=== PATIENT | male | born 1975 | race Caucasian/White ===

== ENCOUNTER 2017-03-19 10:09 | Observation (INO) ==
[2017-03-19] MEDS ORDERED: ONDANSETRON 4 MG/2 ML VIAL IV STA ×2 (10:37→12:10)
[2017-03-19] MEDS ORDERED: SODIUM CHLORIDE 0.9% 1,000 ML IV STA ×2 (10:37→12:14)
[2017-03-19] MEDS ORDERED: ONDANSETRON 4 MG/2 ML VIAL ONE ×2 (10:37→11:58)
--- NOTE | 2017-03-19 10:39 | Emergency Department Note ---
Arrival - Arrival Chief Complaint: Nausea/Vomiting/Diarrhea Stated Complaint: vomiting-stomach pain ED Nursing Triage Note: Pt c/o N/V since Friday. reports some diarrhea this morning. Pt states unable to keep anything down. Mode of Arrival: Ambulatory Limitations: No Limitations Source: Patient Time Seen by Provider: 03/19/17 10:37 - History of Present Illness HPI Narrative: This is a 41-year-old male patient presents to ED complaining of a 2 day history of vomiting. Patient also reports one episode of diarrhea. Patient denies any fever or body aches. Patient does have some pain when he throws up. Past medical history is unremarkable except for ADHD. Patient takes Adderall and Seroquel. There is no known exposure to people with similar illnesses or any bad food exposure. Allergies/Adverse Reactions: Allergies Allergy/AdvReac Type Severity Reaction Status Date / Time No Known Allergies Allergy Verified 03/19/17 10:21 Home Medications: Home Medications Medication Instructions Recorded Confirmed Type Dextroamphetamine/Amphetamine 20 mg PO QAM 03/19/17 03/19/17 History [Adderall 20 mg Tablet] QUEtiapine [SEROquel] 25 mg PO BEDTIME 03/19/17 03/19/17 History Review of System - Review of System 12 point system: reviewed and no additional remarkable complaints except as stated - Review of System Constitutional: Absent: chills, fever Gastrointestinal: Present: nausea, vomiting, diarrhea. Absent: abdominal pain Medical,Surgical,& Family Hx - Medical History Medical History: noncontributory - Social History Smoking Status: Never smoker Frequency of Alcohol Use: None Type of Drug Use: None Exam Vital Signs: Vital Signs Temperature 97.0 F L 03/19/17 10:29 Pulse Rate 89 03/19/17 10:29 Respiratory Rate 18 03/19/17 10:29 Blood Pressure 116/75 03/19/17 10:29 O2 Sat by Pulse Oximetry 98 03/19/17 10:19 - General General appearance: alert, in no apparent distress - Head Head exam: Present: atraumatic - Eye Eye exam: Present: normal appearance, PERRL - ENT ENT exam: Present: normal exam - Neck Neck exam: Present: normal inspection - Chest Chest inspection: Present: normal inspection - Respiratory Respiratory exam: Present: normal lung sounds bilaterally - Cardiovascular Cardiovascular exam: Present: regular rate, normal rhythm, normal heart sounds. Absent: murmur - Abdominal Exam Abdominal exam: Present: soft, tenderness (Left upper quadrant to direct palpation), normal bowel sounds. Absent: guarding, rebound - Rectal Exam Rectal exam: Present: deferred - Extremities Exam Extremities exam: Present: normal inspection - Back Exam Back exam: Present: normal inspection - Neurological Exam Neurological exam: Present: alert, oriented X3 - Psychiatric Psychiatric exam: Present: normal affect, normal mood - Skin Skin exam: Present: warm, dry Course Course Narrative: Patient has had several doses of Zofran and Phenergan and continues to have vomiting. He is received 2 L of fluids while in the ED. Will admit for further observation. After receiving the CAT scan report we reexamined the patient and he has no tenderness at all over the right lower quadrant. I doubt this is appendicitis. Results - Labs CBC & BMP: 03/19/17 10:42 03/19/17 10:42 Lab Results: I have reviewed the patients labs - Diagnostic Findings Procedure: CT Abdomen and Pelvis: report reviewed by me (Appendix is mildly thickened at 10 mm. There is no periappendiceal inflammation noted.) Disposition Clinical Impression: Acute pancreatitis, Elevated bilirubin, Vomiting, Dehydration Case discussed with: patient, patient's family Disposition: Still a Patient Condition: Guarded Additional Instructions: Admit to the hospitalist.
[2017-03-19 10:48] LABS: Basophils % 0.2 % (0.0-0.8); Hemoglobin 16.2 GM/DL (14.0-18.0); Immature Granulocytes % 0.5 %; Immature Granulocytes Absolute 0.07 #; Lymphocytes # 1.9 10*3/uL (1.4-4.0); Lymphocytes % 12.7 % (21.2-54.2); Mean Corpuscular HGB Conc 34.5 GM/DL (32-36); Mean Corpuscular Hemoglobin 30 PG (27-34); Mean Corpuscular Volume 87.4 FL (87-102); Mean Platelet Volume 9.3 FL (9.6-12.0); Monocytes % 6.8 % (1.7-12.7); Neutrophils # 11.9 10*3/uL (1.4-7.4); Neutrophils % 79.8 % (38.7-73.9); Platelet Count 514 T/CUMM (130-400); Red Blood Count 5.38 MC/CUMM (3.8-5.5); Red Cell Distribution Width 11.7 % (9.3-17.3); White Blood Count 14.9 T/CUMM (4-12)
[2017-03-19 11:19] LABS: Albumin 4.8 G/DL (3.4-5.0); Bilirubin,Total 1.3 MG/DL (0.2-1.0); Calcium 10.1 MG/DL (8.5-10.1); Osmolality,Calculated 275.1 MOS/KG (273-304); Total Protein 8.7 G/DL (6.4-8.3)
--- NOTE | 2017-03-19 13:03 | CT Report ---
History: Nausea and vomiting. Abnormal labs. Elevated white blood cell count. Elevated lipase Date: 03/19/2017 Study: CT abdomen and pelvis with IV contrast Comparison exam: No previous abdominal CT for comparison Technique: Spiral CT sections were obtained from the lung bases to the pubic symphysis following 100 mL Omnipaque [address] exam was performed using one or more of the following dose reduction techniques: Automated exposure control, adjustment of the mA and/or kV according to patient size, or use of iterative reconstruction technique. CT abdomen: The partially visualized lung bases are essentially clear. There is no gross pleural or pericardial effusion. The liver, bile ducts, fluid-filled gallbladder, spleen, pancreas, adrenal glands, and kidneys are normal in appearance. There is no obvious inflammatory change in the peripancreatic fat. There is no evidence of pneumoperitoneum. There is no margarita bowel obstruction. There is limited distention of the colon, limiting evaluation for wall thickening related to colitis. There is no gross pericolonic inflammation. There is mild diverticulosis. The appendix is plump at 10 mm. There is no obvious periappendiceal inflammation. There is no evidence of abscess formation. There is no aortic aneurysm. CT pelvis: No pelvic mass or abnormal pelvic fluid collection is seen. Impression: The appendix measures mildly thickened at 10 mm diameter, compatible with mild/early appendicitis. There is no gross periappendiceal inflammation, however. There is no evidence of abscess or perforation. No significant findings otherwise PROCEDURE INTERPRETED AT [facility] DEPARTMENT OF RADIOLOGY Final Report Signed by: Dr. Lin Peace
[2017-03-19] MEDS ORDERED: PROMETHAZINE 25 MG/1 ML VIAL ONE (13:14)
[2017-03-19] MEDS ORDERED: PROMETHAZINE INJ 25 MG in SODIUM CHLORIDE 0.9% 50 ML IV STA (13:22)
[2017-03-19] MEDS ORDERED: PROMETHAZINE 25 MG/1 ML VIAL IM STA (13:23)
[2017-03-19] MEDS ORDERED: METOCLOPRAMIDE 10 MG/2 ML VIAL ONE (13:41)
[2017-03-19] MEDS ORDERED: METOCLOPRAMIDE 10 MG/2 ML VIAL IV STA (13:47)
--- NOTE | 2017-03-19 14:06 | General Surgery Consult Note ---
Assessment and Plan - Time spent with patient Time spent with patient: Less than 30 minutes (1) Vomiting Status: Acute Assessment and plan: The etiology of his nausea and vomiting is unclear. I do not think that the patient likely has appendicitis despite the fact that his appendix is a little bit larger than normal on CT scan. There is no tenderness and no pain in this location and no periappendiceal inflammation. This process is been going on for several days in a think that if appendicitis with a culprit it would certainly be more obvious on CT scan and on clinical examination. Current Visit: Yes (2) Acute pancreatitis Status: Acute Assessment and plan: He has a mild elevation of his lipase and I think that true acute pancreatitis is unlikely. I would expect to see much higher lipase level and some changes of inflammation around the pancreas on CT scan. Current Visit: Yes (3) Elevated bilirubin Status: Acute Assessment and plan: This may be Guilbert syndrome. We can check a fractionated bilirubin. Current Visit: Yes History of Present Illness Chief complaint: Nausea and vomiting History of present illness: Mr. Ybarra is a 41 year old male Who for 4 days has had nausea and vomiting. He has had minimal abdominal pain and he attributes abdominal pain to vomiting. He cannot localize any particular pain in his abdomen. He has had a little bit of diarrhea but otherwise normal bowel habits. He had an abdominal CT scan which raised the possibility of early appendicitis as he had a visible appendix dilated about 10 mm but no periappendiceal inflammation. Home Medications Medication Instructions Recorded Confirmed Type Dextroamphetamine/Amphetamine 20 mg PO QAM 03/19/17 03/19/17 History [Adderall 20 mg Tablet] QUEtiapine [SEROquel] 25 mg PO BEDTIME 03/19/17 03/19/17 History Allergies Allergy/AdvReac Type Severity Reaction Status Date / Time No Known Allergies Allergy Verified 03/19/17 10:21 Medical,Surgical,& Family Hx - Medical History Medical History: noncontributory - Surgical History Surgical History: noncontributory - Family History Family History: noncontributory - Social History Smoking Status: Never smoker Frequency of Alcohol Use: None Type of Drug Use: None - Constitutional Constitutional: Absent: chills, fever(s) - Cardiovascular Cardiovascular: Absent: chest pain at rest, chest pain with activity - Respiratory Respiratory: Absent: dyspnea, hemoptysis - Gastrointestinal Gastrointestinal: Present: diarrhea, nausea, vomiting. Absent: abdominal pain, cramping, hematemesis, hematochezia, jaundice Exam - Constitutional Vitals: Period Temp Pulse Resp BP Sys/Armendariz Pulse Ox Last 24 Hr 97.0 F-97.0 F 89-89 18-18 116-116/75-75 98 General appearance: no acute distress - Head Head exam: Present: normocephalic - Eye Eye exam: Absent: scleral icterus - ENT Mouth exam: Present: normal voice - Respiratory Respiratory exam: Present: clear to auscultation bilaterally. Absent: accessory muscle use - Cardiovascular Cardiovascular exam: Present: RRR - GI/Abdominal GI/Abdominal exam: Present: normal bowel sounds, soft. Absent: distended, guarding, mass, Hairston's sign, tenderness, rebound - Extremities Exam Extremities exam: Absent: edema - Neurological Exam Neurological exam: Present: alert, oriented X3. Absent: motor sensory deficit Speech: Present: normal - Skin Skin exam: Present: normal color Results - Labs CBC & BMP: 03/19/17 10:42 03/19/17 10:42 Lab Results: I have reviewed the past 24 hour labs - Diagnostic Findings Procedure: CT Abdomen and Pelvis: image reviewed by me, report reviewed by me
--- NOTE | 2017-03-19 15:03 | Hospitalist History & Physical ---
Assessment and Plan - Time spent with patient Time spent with patient: Greater than 30 minutes (1) Acute pancreatitis Status: Acute Assessment and plan: Lipase 465 WBC 14.9. Keep NPO. IV fluids. PRN pain medications. Repeat CBC and BMP in the a.m. Current Visit: Yes (2) Vomiting Status: Acute Assessment and plan: Intractable vomiting since Friday. Given Zofran, Phenergan and Reglan in the ED. Will continue to monitor and provide therapeutic support. Current Visit: Yes (3) Dehydration Status: Acute Assessment and plan: Fluid repletion with IV Normal Saline Current Visit: Yes History of Present Illness Chief complaint: intractable N/V History of present illness: Mr. Ybarra is a 41 year old male with no significant medical history who presents the [facility] ED with complaints of intractable nausea and vomiting since Friday morning. The patient and his , who is at bedside, report that he has not been nauseas and vomiting for the past two days despite antiemetic usage and reduced intake. He denies any chest pain, headache, abdominal pain, history of liver disease, kidney stones, recent infections or previous abdominal surgeries. Other than a bout of diarrhea this morning, he denies any abdominal bowel function. The patient states he has not urinated in 3 days. The etiology of his nausea and vomiting is unclear on admission. The patient does have and elevated lipase 465 and white count 14.9, however, this is not congruent with a typical pancreatitis presentation. He will be admitted to the hospital medicine service for rehydration, further evaluation and treatment. The patient does have a history of dipping tobacco, approx 1 can per day. The patient is a full code. This case has been discussed with Dr. Hess. Home Medications Medication Instructions Recorded Confirmed Type Dextroamphetamine/Amphetamine 20 mg PO QAM 03/19/17 03/19/17 History [Adderall 20 mg Tablet] QUEtiapine [SEROquel] 25 mg PO BEDTIME 03/19/17 03/19/17 History Allergies Allergy/AdvReac Type Severity Reaction Status Date / Time No Known Allergies Allergy Verified 03/19/17 10:21 Medical,Surgical,& Family Hx - Social History Smoking Status: Never smoker (dips 1 can tobacco per day) Frequency of Alcohol Use: None Type of Drug Use: None Marital Status: Lives With:: Spouse Functional capacity: independent ambulation - Constitutional Constitutional: Absent: fatigue, fever(s), headache(s), night sweats - EENT Eyes: Absent: blurry vision, loss of vision Ears: Absent: decreased hearing, ear pain Nose, mouth and throat: Present: sore throat. Absent: dysphagia, epistaxis - Cardiovascular Cardiovascular: Absent: chest pain at rest, chest pain with activity, dyspnea, edema - Respiratory Respiratory: Absent: cough, hemoptysis, wheezing, snoring - Gastrointestinal Gastrointestinal: Present: diarrhea, nausea, vomiting. Absent: abdominal pain, constipation, heartburn - Genitourinary Genitourinary: Present: other (has not urinated in 3 days) - Musculoskeletal Musculoskeletal: Absent: back pain, myalgias - Neurological Neurological: Absent: abnormal gait, abnormal speech, numbness, syncope - Psychiatric Psychiatric: Absent: anxiety, depression - Endocrine Endocrine: Absent: cold intolerance, fatigue, heat intolerance - Hematologic/Lymphatic Hematologic/Lymphatic: Absent: easy bleeding, easy bruising Exam - Constitutional Vitals: Period Temp Pulse Resp BP Sys/Armendariz Pulse Ox Last 24 Hr 97.0 F-97.0 F 89-89 18-18 116-116/75-75 98 Exam: General appearance: normal weight, no acute distress - Head Head exam: Present: normocephalic, atraumatic - Eye Eye exam: Present: EOMI. Absent: conjunctival injection, nystagmus Pupils: Present: JALEESA, normal accommodation - ENT ENT exam: Present: normal exam, normal external ear exam - Neck Neck exam: Present: normal inspection. Absent: lymphadenopathy, tenderness, thyromegaly - Respiratory Respiratory exam: Present: clear to auscultation bilaterally. Absent: rales, rhonchi, wheezes - Cardiovascular Cardiovascular exam: Present: regular rate and rhythm. Absent: carotid bruit, gallop, rubs - GI/Abdominal GI/Abdominal exam: Present: hypoactive bowel sounds. Absent: ascites, distended , mass - Extremities Exam Extremities exam: Present: normal inspection, normal capillary refill. Absent: edema - Back Exam Back exam: Absent: CVA tenderness (L), CVA tenderness (R) - Neurological Exam Neurological exam: Present: alert, oriented X3 - Psychiatric Psychiatric exam: Present: normal affect, normal mood - Skin Skin exam: Present: normal color, warm, dry Results - Labs CBC & BMP: 03/19/17 10:42 03/19/17 10:42 Lab Results: I have reviewed the past 24 hour labs
[2017-03-19] MEDS: SODIUM CHLORIDE 0.9% 1,000 ML IV SCH (16:19)
[2017-03-19] MEDS: PROMETHAZINE INJ 12.5 MG in SODIUM CHLORIDE 0.9% 50 ML IV PRN (16:38)
[2017-03-19] MEDS: QUEtiapine 25 MG TABLET PO SCH (20:40)
[2017-03-20] MEDS: ONDANSETRON 4 MG/2 ML VIAL IV PRN ×3 (00:07→13:15)
[2017-03-20] MEDS: SODIUM CHLORIDE 0.9% 1,000 ML IV SCH ×2 (00:30→17:53)
[2017-03-20] MEDS: PROMETHAZINE INJ 12.5 MG in SODIUM CHLORIDE 0.9% 50 ML IV PRN ×2 (04:05→11:22)
[2017-03-20 06:32] LABS: Basophils # 0.1 10*3/uL (0.0-0.2); Basophils % 0.4 % (0.0-0.8); Eosinophils % 0.1 % (0.00-10.9); Hematocrit 39.1 VOL% (42.0-52.0); Immature Granulocytes % 0.4 %; Immature Granulocytes Absolute 0.05 #; Lymphocytes % 14.9 % (21.2-54.2); Mean Corpuscular HGB Conc 34.8 GM/DL (32-36); Mean Corpuscular Hemoglobin 30 PG (27-34); Mean Corpuscular Volume 87.1 FL (87-102); Mean Platelet Volume 10.2 FL (9.6-12.0); Monocytes # 1.3 10*3/uL (0.11-0.8); Monocytes % 9.9 % (1.7-12.7); Neutrophils % 74.3 % (38.7-73.9); Platelet Count 444 T/CUMM (130-400); Red Blood Count 4.49 MC/CUMM (3.8-5.5); Red Cell Distribution Width 11.7 % (9.3-17.3); White Blood Count 13.4 T/CUMM (4-12)
[2017-03-20 06:42] LABS: Hemoglobin 13.6 GM/DL (14.0-18.0)
[2017-03-20 06:57] LABS: Calcium 8.8 MG/DL (8.5-10.1); Osmolality,Calculated 278.5 MOS/KG (273-304); Potassium 3.8 MMOL/L (3.5-5.1)
--- NOTE | 2017-03-20 08:06 | Hospitalist Progress Note ---
Assessment and Plan (1) Vomiting Status: Acute Assessment and plan: Impression: 1. Probable gastroenteritis, etiology not known. He has now developed some lower GI symptoms Plan: Continue IV fluids and GI rest. Stool studies to evaluate for pathogenic organisms. There is no history to suggest Clostridium difficile. Recheck amylase and lipase. Unless he has a remarkable improvement today, I think he will have to spend 1 more night in the hospital for IV fluids and ongoing IV nausea medicine. This note was completed using [employer] voice recognition software. There may be hide splitter errors as a result. Current Visit: Yes Qualifiers: Vomiting type: unspecified Vomiting Intractability: non-intractable Nausea presence: with nausea Qualified Code(s): R11.2 - Nausea with vomiting, unspecified Hospitalist: Subjective Interval history: Follow-up gastroenteritis and possible pancreatitis. The patient has continued to have episodes of nausea, vomiting, and pain. He has had 2 or 3 loose stools. He describes these as large volume, liquid, and no blood noted. He continues to require anti-emetics for relief of the upper GI symptoms. Exam - Constitutional Vitals: Period Temp Pulse Resp BP Sys/Armendariz Pulse Ox Last 24 Hr 98.8 F-99.6 F 64-73 18-20 122-140/70-81 95-98 Vital signs are noted above. Heart is regular with no murmur or gallop. Lungs are clear with no rales or wheezes. Abdomen has positive bowel sounds, and is mildly tender all over. There is no palpable mass. He is awake and alert. Results - Labs CBC & BMP: 03/20/17 05:11 03/20/17 05:11 Lab Results: I have reviewed the past 24 hour labs
[2017-03-20] MEDS ORDERED: NON-FORMULARY MEDICATION (Dextroamphetamine/Amphetamine [Adderall 20 Mg Tablet] 20 MG) PO SCH (09:00)
[2017-03-20] MEDS ORDERED: HALOPERIDOL 5 MG/ML AMP IV PRN (09:27)
[2017-03-20 10:11] LABS: Bilirubin,Direct 0.3 MG/DL (0.0-0.20); Bilirubin,Indirect 0.8 MG/DL (0.0-1.0); Bilirubin,Total 1.1 MG/DL (0.2-1.0)
[2017-03-20] MEDS ORDERED: PHENOL 1.4% THROAT SPRAY 177 ML BOTTLE PO PRN (14:59)
[2017-03-20] MEDS ORDERED: ALUM/MAG/SIMETH/LIDO VISC 1:1 30 ML BOTTLE PO PRN (15:49)
[2017-03-20] MEDS ORDERED: PROMETHAZINE INJ 25 MG in SODIUM CHLORIDE 0.9% 50 ML IV PRN (20:11)
--- NOTE | 2017-03-20 20:18 | Gastrointestinal Consult Note ---
Assessment and Plan (1) Nausea vomiting and diarrhea Status: Acute Assessment and plan: I suspect that this of complaints is likely due to an underlying infectious gastroenteritis. With a white blood cell count as high as 14 this certainly might be a bacterial infection and I will go ahead and start some floroquinolones in order to treat this, while we await the stool cultures. Will recheck the patient's white blood cell count tomorrow after starting Cipro tonight. Do the days worth of nausea and vomiting and the fact the patient is having some reflux symptoms I started some Protonix 40 mg twice daily which should help with a probable esophagitis developing as a result of the protracted vomiting. This alone can feed back into the nausea make this worse. Current Visit: Yes (2) Leukocytosis Status: Acute Assessment and plan: As mentioned above we will check the patient's white blood cell count tomorrow and see how it compares to the initial level of almost 15. I suspect this will improve rather to more dramatically along with the patient's symptoms. Current Visit: Yes (3) Elevated bilirubin Status: Acute Assessment and plan: This may represent a dehydration state with Gilbert's syndrome, we will have to check the patient's direct bilirubin during a period when he is fasting next in order to confirm this. If Gilbert's syndrome is present, the indirect bilirubin will predominate during fasting states--it typically does not produce a bilirubin higher than 2-5. There is no ductal dilatation nor is the patient having any right upper quadrant pain-- I do not suspect the gallbladder or biliary obstructive process. Current Visit: Yes History of Present Illness Chief complaint: Nausea/vomiting/diarrhea without significant abdominal pain History of present illness: Mr. 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 He denies eating anything spoiled or unusual does not partake of sushi or other uncooked proteins, has not had any sick contacts, has not had any recent travel history, does not have any unusual pets such as chickens frogs or reptiles. While the patient does have several children at home none of these children are sick. He does not have any fevers or chills but does have some mild reflux symptoms at this point after throwing up so many times. There is slight amount of epigastric tenderness due to the amount of vomiting he is having. Patient's white blood cell count was quite elevated initially at 14.9. I do not make much of the lipase level of 465 especially in the face of normal-appearing CT scan, this can be up with intra-abdominal inflammation. He does not typically have diarrhea or constipation. The picture is mostly one of a gastroenteritis possibly bacterial in origin based on the elevated white blood cell count. Stool culture is pending at this time. Bilirubin have been slightly elevated at 1.3 but with hydration is come down to 1.1, this may be indicative of a Gilbert's. To verify this will likely have to obtain a direct bilirubin while the patient is fasting in the future. Home Medications Medication Instructions Recorded Confirmed Type Dextroamphetamine/Amphetamine 20 mg PO QAM 03/19/17 03/19/17 History [Adderall 20 mg Tablet] QUEtiapine [SEROquel] 25 mg PO BEDTIME 03/19/17 03/19/17 History Allergies Allergy/AdvReac Type Severity Reaction Status Date / Time No Known Allergies Allergy Verified 03/19/17 10:21 Medical,Surgical,& Family Hx - Social History Smoking Status: Never smoker Frequency of Alcohol Use: None Type of Drug Use: None Review of systems: Constitutional: Denies fever, chills, but positive for recurrent nausea, and vomiting Eyes: Denies dry eyes, and scleral icterus HENT: Denies headaches Cardiovascular: Denies acute chest pain and claudication Respiratory: Denies shortness of breath, wheezing, and difficulty breathing, denies cough Gastrointestinal: As noted in the HPI Genitourinary: Denies dysuria and hematuria Neurologic: Denies vision loss, and loss of sensation Musculoskeletal: Denies joint swelling, joint stiffness, and muscular weakness Psychiatric: Denies depression and milli symptoms, this patient may have ADHD as he is baseline on Adderall Heme-Lymph: Denies easy bruising, lymph node enlargement or tenderness, night sweats, excessive bleeding Allergies-immunologic: Denies pruritus and rhinorrhea Exam - Constitutional Vitals: Period Temp Pulse Resp BP Sys/Armendariz Pulse Ox Last 24 Hr 97.4 F-98.8 F 58-73 18-20 122-131/67-80 95-98 Exam: Constitutional: Well-developed, well-nourished, alert, and in no acute distress Head and face: Head: Normocephalic atraumatic Eyes: Conjunctiva without injection, no gross scleral icterus, pupils equal and round bilaterally Ears: Intact to conversation in both ears Nose: External appearance is normal, nares patent Mouth: Oral mucous membranes moist without erythema dentition noted to be without erosion Neck: Normal appearance, no masses or tenderness, trachea midline Thyroid: Gland midline and appropriate size for age Respiratory: Normal respiratory effort, clear to auscultation without wheezes, rhonchi or rales Cardiovascular: Regular rate and rhythm, normal S1, S2, the exam is without rubs, murmurs or gallops. Gastrointestinal: Mildly tender to deep palpation in the epigastric region , normal active bowel sounds, tone normal without rigidity or guarding, no masses present, no hepatomegaly, no spleen tip felt. No rectal exam obtained. Lymphatic: Neck without adenopathy, axilla without lymphadenopathy present Musculoskeletal: Right and left lower extremities without evidence of edema Skin and subcutaneous tissue: No rashes or ulcerations noted, normal skin turgor, digits and nails without clubbing/cyanosis/deformities. Neurologic: The patient is grossly oriented to person place and time, cranial nerves show tongue movements are normal with normal tongue extrusion midline, light touch sensation is intact. Psychiatric: No hallucinations or delusions are present, does not appear depressed, this patient does appear to be mildly sedated. Results - Labs CBC & BMP: 03/20/17 05:11 03/20/17 05:11
[2017-03-20] MEDS: QUEtiapine 25 MG TABLET PO SCH (21:17)
[2017-03-20] MEDS ORDERED: LORazepam 2 MG/1 ML VIAL IV PRN (22:15)
[2017-03-20] MEDS: PANTOPRAZOLE 40 MG VIAL IV SCH (22:27)
[2017-03-20] MEDS: CIPROFLOXACIN INJ 400 MG in PREMIX 1 EACH IV SCH (22:30)
[2017-03-21] MEDS: SODIUM CHLORIDE 0.9% 1,000 ML IV SCH ×2 (04:30→04:59)
[2017-03-21 06:24] LABS: Basophils # 0.1 10*3/uL (0.0-0.2); Basophils % 0.5 % (0.0-0.8); Eosinophils # 0.1 10*3/uL (0.0-0.87); Eosinophils % 1.1 % (0.00-10.9); Hematocrit 39.4 VOL% (42.0-52.0); Hemoglobin 13.6 GM/DL (14.0-18.0); Immature Granulocytes % 0.3 %; Immature Granulocytes Absolute 0.03 #; Lymphocytes # 1.8 10*3/uL (1.4-4.0); Lymphocytes % 18.4 % (21.2-54.2); Mean Corpuscular HGB Conc 34.5 GM/DL (32-36); Mean Corpuscular Hemoglobin 30 PG (27-34); Mean Corpuscular Volume 86.8 FL (87-102); Mean Platelet Volume 9.7 FL (9.6-12.0); Monocytes # 1.1 10*3/uL (0.11-0.8); Monocytes % 10.6 % (1.7-12.7); Neutrophils # 6.8 10*3/uL (1.4-7.4); Neutrophils % 69.1 % (38.7-73.9); Platelet Count 377 T/CUMM (130-400); Red Blood Count 4.54 MC/CUMM (3.8-5.5); Red Cell Distribution Width 11.2 % (9.3-17.3); White Blood Count 9.9 T/CUMM (4-12)
[2017-03-21 06:50] LABS: Calcium 8.5 MG/DL (8.5-10.1); Potassium 3.9 MMOL/L (3.5-5.1)
--- NOTE | 2017-03-21 08:46 | General Surgery Progress Note ---
Assessment and Plan (1) Vomiting Status: Acute Assessment and plan: The etiology of his nausea and vomiting is unclear. I do not think that the patient likely has appendicitis despite the fact that his appendix is a little bit larger than normal on CT scan. There is no tenderness and no pain in this location and no periappendiceal inflammation. This process is been going on for several days in a think that if appendicitis with a culprit it would certainly be more obvious on CT scan and on clinical examination. 03/21: He feels much better. He no longer has nausea or vomiting. His diarrhea is better. I actually saw the patient yesterday but could not put in the note. Yesterday he had developed diarrhea making this more suggestive of an infectious enteritis. I agree with the assessment from gastroenterology. I do not think that there is a underlying surgical problem. I will sign off for now but I am available if needed and my partners are covering this weekend if needed. Current Visit: Yes Qualifiers: Vomiting type: unspecified Vomiting Intractability: non-intractable Nausea presence: with nausea Qualified Code(s): R11.2 - Nausea with vomiting, unspecified (2) Acute pancreatitis Status: Acute Assessment and plan: He has a mild elevation of his lipase and I think that true acute pancreatitis is unlikely. I would expect to see much higher lipase level and some changes of inflammation around the pancreas on CT scan. Current Visit: Yes (3) Elevated bilirubin Status: Acute Assessment and plan: This may be Guilbert syndrome. We can check a fractionated bilirubin. Current Visit: Yes Subjective Patient reports: Present: feels better, tolerating liquids well, diarrhea. Absent: still having pain, nausea, vomiting Exam - Constitutional Vitals: Period Temp Pulse Resp BP Sys/Armendariz Pulse Ox Last 24 Hr 97.8 F-99.0 F 58-79 20-20 124-140/66-77 96-98 General appearance: no acute distress - Head Head exam: Present: normocephalic - Eye Eye exam: Absent: scleral icterus - Respiratory Respiratory exam: Absent: accessory muscle use - GI/Abdominal GI/Abdominal exam: Absent: distended, tenderness Results - Labs CBC & BMP: 03/21/17 05:59 03/21/17 05:59 Lab Results: I have reviewed the past 24 hour labs
[2017-03-21] MEDS: CIPROFLOXACIN INJ 400 MG in PREMIX 1 EACH IV SCH (09:53)
[2017-03-21] MEDS: PANTOPRAZOLE 40 MG VIAL IV SCH (09:53)
[2017-03-21 12:11] VITALS: BP 156/88
--- NOTE | 2017-03-21 13:17 | Discharge Summary ---
Hospital Course - Hospital Course Hospital Course: Discharge diagnosis: 1. Probable viral gastroenteritis The patient presented to the emergency room for evaluation of nausea and vomiting. He had numerous episodes prior to presenting to the hospital. His lipase was slightly elevated, but CT scan of the abdomen did not show any radiographic evidence of pancreatitis. He was admitted to the hospital, and then developed diarrhea. Stool was negative for white cells, occult blood, and enteric pathogens. He continued with diarrhea and upper GI symptoms. GI saw the patient, and concurred with the diagnosis. After about 48 hours, he began to improve. He tolerated liquids. At that point we let him go home. Medication reconciliation has been performed. Advance diet as tolerated. Activity as tolerated. This note was completed using [employer] voice recognition software. There may be cross tie tram loader errors as a result. Diagnosis - Discharge Diagnosis (1) Vomiting Status: Acute Discharge Plan - Discharge Data Disposition: Disch To Home/Self Care Condition at Discharge: Stable Discharge Diet: advance to your usual diet Activity: resume usual activities as tolerated Hygiene: no restrictions Weight Bearing at Discharge: full weight bearing Driving: no restrictions - Discharge Medications Continue QUEtiapine [SEROquel] 25 mg PO BEDTIME Dextroamphetamine/Amphetamine [Adderall 20 mg Tablet] 20 mg PO QAM - Follow Up or Referral - Forms/Instructions Exam - Constitutional Vitals: Period Temp Pulse Resp BP Sys/Armendariz Pulse Ox Last 24 Hr 97.8 F-99.0 F 60-79 19-20 124-156/66-88 95-98 Vital signs are noted above. Abdomen is soft without any significant mass or tenderness. Discharge Results Procedures and tests throughout hospitalization: Pending Orders 03/20/17 09:05 Occult Blood, Stool Routine Stool Culture/Campy/Yersinia Routine Labs on day of discharge: Labs from last 24 hours 03/21/17 03/21/17 03/21/17 05:59 05:59 05:59 WBC 9.9 RBC 4.54 Hgb 13.6 L Hct 39.4 L MCV 86.8 L MCH 30 MCHC 34.5 RDW 11.2 Plt Count 377 MPV 9.7 Neut % (Auto) 69.1 Lymph % (Auto) 18.4 L Garza % (Auto) 10.6 Eos % (Auto) 1.1 Baso % (Auto) 0.5 Neut # (Auto) 6.8 Lymph # (Auto) 1.8 Garza # (Auto) 1.1 H Eos # (Auto) 0.1 Baso # (Auto) 0.1 Immature Gran % 0.3 Nucleated RBC % 0.0 Immature Gran # 0.03 Nucleated RBCs # 0.00 Sodium 136 Potassium 3.9 Chloride 101 Carbon Dioxide 26 Anion Gap 12.9 BUN 10 Creatinine 0.70 GFR Calculation 151 BUN/Creatinine Ratio 14.00 Glucose 87 Calculated Osmolality 269.0 L Calcium 8.5 Lipase 617.0 H D Preliminary micro results at discharge 03/20/17 09:05 Stool Culture - Preliminary Stool No enteric pathogens at 24 hrs DS: Provider Date of admission: 03/19/17 15:04 Primary care physician: . No PCP Attending physician on admission: Sudhakar Hess MD Consults: 03/20/17 15:50 Consult to Physician [CONS] Routine Comment: persistent N/V, diarrhea Consulting Provider: Tashi Dalton Consult to Specialist Group: Gastroenterology When should Consulting Provider be notified: Now Person Notified: Marcy Date Notified: 03/20/17 Time Notified: 16:30 Consult Notification Comment: called office [phone] Discharging clinician: Sudhakar Hess MD Expected date of discharge: 03/21/17
== END 2017-03-21 13:56 | disposition home or self-care (01) ==
LOC: N.ED 10:09 → N.EDINP 10:09 → N.2E 15:44
PROVIDERS: ADMIT Internal Medicine Geriatric Medicine; ATTEND Internal Medicine Geriatric Medicine

== ENCOUNTER 2019-02-12 19:26 | Inpatient (IN) ==
[2019-02-12] MEDS ORDERED: LACTATED RINGERS 1,000 ML IV ONE ×2 (20:01→21:26)
[2019-02-12] MEDS ORDERED: ONDANSETRON 4 MG/2 ML VIAL IV STA (20:04)
[2019-02-12 20:20] LABS: Basophils % 0.4 % (0.0-0.8); Eosinophils % 0.1 % (0.00-10.9); Hematocrit 44.5 VOL% (42.0-52.0); Immature Granulocytes % 0.4 %; Immature Granulocytes Absolute 0.04 #; Lymphocytes # 1.7 10*3/uL (1.4-4.0); Lymphocytes % 14.9 % (21.2-54.2); Mean Corpuscular HGB Conc 33.7 GM/DL (32-36); Mean Corpuscular Hemoglobin 30 PG (27-34); Mean Corpuscular Volume 89.2 FL (87-102); Monocytes # 0.8 10*3/uL (0.11-0.8); Monocytes % 7.2 % (1.7-12.7); NRBC # 0.02 10*3/uL; Neutrophils # 8.5 10*3/uL (1.4-7.4); Platelet Count 463 T/CUMM (130-400); Red Blood Count 4.99 MC/CUMM (3.8-5.5); Red Cell Distribution Width 13.2 % (9.3-17.3)
[2019-02-12] MEDS ORDERED: PROMETHAZINE INJ 25 MG in SODIUM CHLORIDE 0.9% 50 ML IV STA (20:42)
[2019-02-12] MEDS ORDERED: PROMETHAZINE 25 MG/1 ML VIAL ONE (20:43)
[2019-02-12 20:57] LABS: Albumin 4.5 G/DL (3.4-5.0); Bilirubin,Total 0.8 MG/DL (0.2-1.0); Calcium 9.6 MG/DL (8.5-10.1); Osmolality,Calculated 275.7 MOS/KG (273-304); Potassium 3.8 MMOL/L (3.5-5.1)
[2019-02-12] MEDS ORDERED: ONDANSETRON 4 MG/2 ML VIAL IV PRN (22:19)
[2019-02-12] MEDS ORDERED: PROMETHAZINE 25 MG/1 ML VIAL IM PRN (22:19)
[2019-02-12] MEDS ORDERED: SCOPOLAMINE 1.5 MG PATCH TRANSDERM ONE (23:00)
[2019-02-12] MEDS: QUEtiapine 25 MG TABLET PO SCH (23:27)
[2019-02-12] MEDS: SODIUM CHLORIDE 0.9% 1,000 ML IV SCH (23:31)
[2019-02-13] MEDS ORDERED: METOCLOPRAMIDE 10 MG/2 ML VIAL IV ONE (06:07)
[2019-02-13] MEDS: SODIUM CHLORIDE 0.9% 1,000 ML IV SCH ×2 (07:20→15:17)
[2019-02-13 07:54] LABS: Calcium 8.4 MG/DL (8.5-10.1); Osmolality,Calculated 278.5 MOS/KG (273-304); Potassium 3.7 MMOL/L (3.5-5.1)
[2019-02-13] MEDS: PANTOPRAZOLE 40 MG VIAL IV SCH ×2 (10:45→20:49)
[2019-02-13] MEDS ORDERED: METOCLOPRAMIDE 10 MG/2 ML VIAL IV PRN ×2 (14:59→16:45)
[2019-02-13] MEDS: METOCLOPRAMIDE 10 MG/2 ML VIAL IV SCH (17:05)
[2019-02-13] MEDS: QUEtiapine 25 MG TABLET PO SCH (20:49)
[2019-02-14] MEDS: METOCLOPRAMIDE 10 MG/2 ML VIAL IV SCH ×3 (00:48→20:32)
[2019-02-14] MEDS: SODIUM CHLORIDE 0.9% 1,000 ML IV SCH ×2 (00:48→08:55)
[2019-02-14] MEDS: PANTOPRAZOLE 40 MG VIAL IV SCH ×2 (08:54→20:30)
[2019-02-14] MEDS ORDERED: LOPERAMIDE 2 MG CAPSULE PO PRN (15:06)
[2019-02-14] MEDS ORDERED: ACETAMINOPHEN 325 MG TABLET PO PRN (15:08)
[2019-02-14] MEDS: QUEtiapine 25 MG TABLET PO SCH (20:33)
[2019-02-15 04:57] LABS: Basophils # 0.1 10*3/uL (0.0-0.2); Basophils % 0.6 % (0.0-0.8); Eosinophils # 0.1 10*3/uL (0.0-0.87); Eosinophils % 0.8 % (0.00-10.9); Hematocrit 35.6 VOL% (42.0-52.0); Hemoglobin 12.3 GM/DL (14.0-18.0); Immature Granulocytes % 0.5 %; Immature Granulocytes Absolute 0.04 #; Lymphocytes # 2.2 10*3/uL (1.4-4.0); Lymphocytes % 25.7 % (21.2-54.2); Mean Corpuscular HGB Conc 34.6 GM/DL (32-36); Mean Corpuscular Hemoglobin 30 PG (27-34); Mean Corpuscular Volume 88.1 FL (87-102); Mean Platelet Volume 9.4 FL (9.6-12.0); Monocytes # 0.8 10*3/uL (0.11-0.8); Monocytes % 9.7 % (1.7-12.7); Neutrophils # 5.2 10*3/uL (1.4-7.4); Neutrophils % 62.7 % (38.7-73.9); Platelet Count 361 T/CUMM (130-400); Red Blood Count 4.04 MC/CUMM (3.8-5.5); Red Cell Distribution Width 12.8 % (9.3-17.3); White Blood Count 8.4 T/CUMM (4-12)
[2019-02-15 05:25] LABS: Calcium 8.2 MG/DL (8.5-10.1); Osmolality,Calculated 275.5 MOS/KG (273-304); Potassium 3.4 MMOL/L (3.5-5.1)
[2019-02-15] MEDS: SODIUM CHLORIDE 0.9% 1,000 ML IV SCH ×3 (06:33→15:38)
[2019-02-15] MEDS: PANTOPRAZOLE 40 MG VIAL IV SCH (08:22)
[2019-02-15] MEDS: METOCLOPRAMIDE 10 MG/2 ML VIAL IV SCH (08:23)
[2019-02-15] MEDS ORDERED: LIDOCAINE 2% 5 ML VIAL ONE (09:00)
[2019-02-15] MEDS ORDERED: PROPOFOL 200 MG/20 ML VIAL IV ONE (09:00)
[2019-02-15 12:54] VITALS: BP 158/92
== END 2019-02-15 15:40 | disposition home or self-care (01) | DRG 392 ==
LOC: N.ED 19:26 → N.EDINP 19:26 → N.3E 22:16
PROVIDERS: ADMIT Internal Medicine; ATTEND Internal Medicine

== ENCOUNTER 2019-12-16 23:10 | Observation (INO) ==
[2019-12-16] MEDS ORDERED: LACTATED RINGERS 1,000 ML IV STA (23:21)
[2019-12-16] MEDS ORDERED: DIPH/TET/ACEL PERT BOOSTER VACCINE 0.5 ML VIAL IM ONE (23:21)
[2019-12-16 23:39] LABS: Basophils # 0.1 10*3/uL (0.0-0.2); Basophils % 0.5 % (0.0-0.8); Eosinophils # 0.1 10*3/uL (0.0-0.87); Eosinophils % 0.6 % (0.00-10.9); Hemoglobin 14.5 GM/DL (14.0-18.0); Immature Granulocytes % 0.4 %; Immature Granulocytes Absolute 0.05 #; Lymphocytes # 2.1 10*3/uL (1.4-4.0); Lymphocytes % 16.8 % (21.2-54.2); Mean Corpuscular HGB Conc 34.5 GM/DL (32-36); Mean Corpuscular Volume 92.7 FL (87-102); Mean Platelet Volume 8.9 FL (9.6-12.0); Monocytes % 9.7 % (1.7-12.7); Platelet Count 420 T/CUMM (130-400); Red Blood Count 4.53 MC/CUMM (3.8-5.5); Red Cell Distribution Width 11.7 % (9.3-17.3); White Blood Count 12.2 T/CUMM (4-12)
[2019-12-16 23:48] LABS: INR 0.9; PT Patient Result 9.9 SECS (9.6-12.2); Partial Thromboplastin Time 27.5 SECS (20.8-36.0)
[2019-12-17 00:09] LABS: Alanine Aminotransferase 49 U/L (16-61); Albumin 4.2 G/DL (3.4-5.0); Alkaline Phosphatase 78 U/L (45-117); Amylase 32 U/L (25-115); Aspartate Amino Transferase 27 U/L (0-37); Blood Urea Nitrogen 11 MG/DL (7-18); Estimated Glom Filtration Rate 119 ML/MIN; Glucose 121 MG/DL (74-106); Osmolality,Calculated 265.4 MOS/KG (273-304); Total Protein 8.7 G/DL (6.4-8.3)
[2019-12-17] MEDS ORDERED: hydrALAZINE 20 MG/1 ML VIAL IV PRN (00:38)
[2019-12-17] MEDS ORDERED: ONDANSETRON 4 MG/2 ML VIAL IV PRN (00:38)
[2019-12-17] MEDS: fentaNYL 100 MCG/2 ML VIAL IV PRN ×2 (01:35→05:15)
[2019-12-17 05:21] LABS: Basophils # 0.1 10*3/uL (0.0-0.2); Basophils % 0.5 % (0.0-0.8); Eosinophils # 0.2 10*3/uL (0.0-0.87); Eosinophils % 1.4 % (0.00-10.9); Hematocrit 40.4 VOL% (42.0-52.0); Hemoglobin 13.8 GM/DL (14.0-18.0); Immature Granulocytes % 0.5 %; Immature Granulocytes Absolute 0.05 #; Lymphocytes # 2.1 10*3/uL (1.4-4.0); Lymphocytes % 18.6 % (21.2-54.2); Mean Corpuscular HGB Conc 34.2 GM/DL (32-36); Mean Corpuscular Volume 92.2 FL (87-102); Mean Platelet Volume 9.7 FL (9.6-12.0); Monocytes % 11.7 % (1.7-12.7); Neutrophils % 67.3 % (38.7-73.9); Platelet Count 376 T/CUMM (130-400); Red Blood Count 4.38 MC/CUMM (3.8-5.5); Red Cell Distribution Width 11.8 % (9.3-17.3); White Blood Count 11.1 T/CUMM (4-12)
[2019-12-17] MEDS ORDERED: ACETAMINOPHEN 325 MG TABLET PO PRN (07:46)
[2019-12-17 12:03] VITALS: BP 129/65
[2019-12-17] MEDS ORDERED: QUEtiapine 25 MG TABLET PO SCH (21:00)
[2019-12-18] MEDS ORDERED: cefTRIAXone 2,000 MG in SYRINGE 1 EACH IV SCH
== END 2019-12-17 14:02 | disposition home or self-care (01) ==
LOC: N.EDINP 23:10 → N.ED 23:10 → N.3E 12-17 00:53
PROVIDERS: ADMIT Student in an Organized Health Care Education/Training Program; ATTEND Student in an Organized Health Care Education/Training Program